=== PATIENT | male | born 2000 | race Caucasian/White ===

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

== ENCOUNTER 2022-03-10 02:22 | Emergency (ER) | payer OTHER ==
--- OUTSIDE RECORDS SUMMARY | 2022-03-10 02:26 | XMS REPORT | Continuity of Care Document ---
:2000 Author Organization [facility] t Address [address] [place] [address] Dr. Castro [address] [place] [address] Care Team Providers Name Role Phone Royce DUBON MBA, Daniel Robert Primary Care Physician [phone] MARIA INES SALDANA Attending Clinician Unavailable ZACKERY BLOUNT Attending Clinician Unavailable KAYLEEN MACHADO Attending Clinician Unavailable Kayleen Machado MD Attending Clinician Doctor Unassigned, [place] Attending Clinician Unavailable Darell Puri MD Attending Clinician VERITO Balbuena Eloise Attending Clinician Ashvin Cobian MD Attending Clinician ANGUS DALTON Attending Clinician Unavailable ANGELLA RAO Attending Clinician Unavailable Angus Amos Attending Clinician Provider[facility]ig[facility] Attending Clinician Unavailable IVAN MAYORGA Attending Clinician Unavailable Lab, Adc Fam Pob I Attending Clinician Unavailable LJ BRISENO Attending Clinician Unavailable ASHVIN COBIAN Attending Clinician Unavailable QI LYNCH Attending Clinician Unavailable ISMA AMBROSIO Attending Clinician Unavailable ISMA AMBROSIO Attending Clinician Unavailable Payers Payer Name Policy Type Policy Number Effective Date Expiration Date S mikey AETNA CHOICE POS [id number] 2019 00:00:00 II OPEN ACCESS [id number] 2019 00:00:00 HMO/POS/EPO/PPO - AETNA AETNA HMO POS [id number] 2019 00:00:00 QPOS Problems Condition Condition Condition Status Onset Resolution Last Treating Co mments Source Name Details Category Date Date Treatment Clinician Date Routine Routine Disease Active Last [facility] adult adult 2-25 [facility] 00:00: t & Plan: of maintenanc maintenanc 00 Formattin Medicin e e g of this e note might be different from the original. Last Annual Physical: - Healthy Lifestyle : Dietary: no specificd iet Exercise: walking at work - Colon Cancer Screening : FHx: negative- Colonosco py at 45 - Prostate Cancer Screening : FHx: positive, GF- PSA discussio n at 40-50 - Skin Cancer Preventio n: Uses Suncreen: yes, he will self monitor - Osteoporo sis Screen (>75): Bone Density at 75 - Vaccinati ons: - Flu: received 04/2021 - Pneumovax : at 65 - Prevnar: at 65 - Tetanus: received around 2018 - Zoster: at 50-60 - COVID-19: received Pfizer 06/2020, 07/2020 - AAA Screen: reports that he has never smoked. - HIV Status Testing (<65): declined - Hep C Testing (born 1945-65): declined No known No known Disease Unive rs active active ity of problems problems [facility] Allergies, Adverse Reactions, Alerts Allergy Allergy Status Severity Reaction(s) Onset Inactive Treating Comm ents Source Name Type Date Date Clinician DIPHENHY DRUG Active Other-Cmnt Univ ers DRAMINE INGREDI 03-30 ity of HCL 00:00: [place] 00 [facility] Diphenhy Propensi Active Other - See Other U nivers dramine ty to comments 03-30 reaction( ity of Hcl adverse 00:00: s): Other [place] reaction 00 - See Medical s [facility] Branch Diphenhy Propensi Active Other [facility] dramine ty to 03-30 reaction( Colleg e Hcl adverse 00:00: s): Other of reaction 00 - See Medicin s to comments e drug NO KNOWN Allergy Active [facility] Social History Social Habit Start Date Stop Date Quantity Comments Source History SDOH [facility] Alcohol Comment Medical C enter History SDOH [facility] Alcohol Std Drinks Medica l Center History SDOH [facility] Alcohol Binge Medical Navin ter Tobacco use and 2021-03-18 2021-03-[address] [facility] exposure 00:00:00 00:00:00 Medical Center Alcohol intake 2021-03-18 2021-03-[address] [facility] 00:00:00 00:00:00 non-drinker Medical Cente r (finding) History SDOH 2021-03-18 2021-03-[address] [facility] Alcohol Frequency 00:00:00 00:00:00 [facility] Center Sex Assigned At [address] [facility] 00:00:00 00:00:00 Medical Center Smoking Status Start Date Stop Date Source Never smoked tobacco [facility] Tony ege of Medicine Unknown if ever smoked [facility] Co llege of Medicine Medications Ordered Filled Start Stop Current Ordering Indication Dosage Frequency Signature Comments Components Source Medication Medication Date Date Medication? Clinician (SIG) Name Name sertraline Yes [id number] 25mg Take 1 [facility] (ZOLOFT) 25 2-25 Tablet by Col lege MG tablet 00:00: mouth of 00 daily. Medicin e hydrOXYzine 2019-03 Yes 10mg Take 1 [facility] (ATARAX) 10 1-27 Tablet by Col lege MG tablet 00:00: mouth 3 of 00 times Medicin daily as e needed for Anxiety. hydrOXYzine 2019-03 Yes 10mg Take 1 [facility] (ATARAX) 10 1-27 Tablet by Col lege MG tablet 00:00: mouth 3 of 00 times Medicin daily as e needed for Anxiety. sertraline Yes 50mg Take 1 Tab [facility] (ZOLOFT) 50 1-29 by mouth Tony ege MG tablet 00:00: daily. of 00 Medicin e SERTraline Yes 50mg Take 50 mg U nivers 50 mg 1-29 by mouth. ity of tablet 00:00: [place] [address] [place] [address] Branch sertraline 2021- No 50mg Take 1 Tab [place] (ZOLOFT) 50 04-26- by mouth Col lege MG tablet 00:00: 00:00 daily. of 00 :00 Medicin e sertraline 2018-03- No Take 0.5 [facility] (ZOLOFT) 50 2-20 01-20 Tabs by Tony ege MG tablet 00:00: 05:59 mouth of 00 :00 daily for Medicin 14 days, e THEN 1 Tab daily for 16 days. hydrOXYzine 2018-03 Yes 10mg Take 1 Tab [facility] (ATARAX) 10 2-18 by mouth 3 Co llege MG tablet 00:00: times of 00 daily as Medicin needed for e Anxiety. sertraline 2018-03- No Take 1 Tab [place] (ZOLOFT) 25 2-18 12-20 by mouth Col lege MG tablet 00:00: 00:00 daily for of 00 :00 14 days, Medicin THEN 2 e Tabs daily for 16 days. Immunizations Ordered Filled Immunization Date Status Comments [facility] e Immunization Name Name Influenza Quad-PF 2021-05-23 Completed [facility] 00:00:00 Medicine SARS-COV-2 COVID-19 2020-07-27 Completed Unive rsity of PFIZER VACCINE 00:00:00 [facility] SARS-COV-2 COVID-19 2020-07-06 Completed Unive rsity of PFIZER VACCINE 00:00:00 [facility] Influenza Virus 2018-01-31 Completed Universit y of Vaccine Quad IM 3+ 00:00:00 [facility] Influenza 2018-01-31 Completed [facility] (Preservative Free) 00:00:00 Medic ine Vital Signs Vital Name Observation Time Observation Value Comments Source Systolic blood 2021-05-23 14:29:00 120 mm[Hg] [facility] pressure Medicine Diastolic blood 2021-05-23 14:29:00 60 mm[Hg] [facility] Medicine Heart rate 2021-05-23 14:29:00 83 /min [facility] Body temperature 2021-05-23 14:29:00 36.39 [facility] Respiratory rate 2021-05-23 14:29:00 16 /min [facility] Body height 2021-05-23 14:29:00 177.8 cm [facility] Body weight 2021-05-23 14:29:00 70.035 kg [facility] BMI 2021-05-23 14:29:00 22.15 kg/m2 [facility] Oxygen saturation in 2021-05-23 14:29:00 98 /min [facility] Arterial blood by [facility] Pulse oximetry WEIGHT 2021-03-18 11:56:00 70.1 kg WEIGHT 2021-03-18 11:56:00 70.1 kg Systolic blood 2020-08-20 14:37:00 121 mm[Hg] [facility] Diastolic blood 2020-08-20 14:37:00 59 mm[Hg] [facility] Heart rate 2020-08-20 14:37:00 58 /min [facility] Body temperature 2020-08-20 14:37:00 36.83 [facility] Respiratory rate 2020-08-20 14:37:00 16 /min [facility] Body height 2020-08-20 14:37:00 177.8 cm [facility] Body weight 2020-08-20 14:37:00 66.225 kg [facility] BMI 2020-08-20 14:37:00 20.95 kg/m2 [facility] Systolic blood 2021-03-18 12:25:00 125 mm[Hg] [facility] Diastolic blood 2021-03-18 12:25:00 62 mm[Hg] [facility] Heart rate 2021-03-18 12:25:00 92 /min [facility] Respiratory rate 2021-03-18 12:25:00 18 /min [facility] Oxygen saturation in 2021-03-18 12:25:00 100 /min [facility] Arterial blood by Medical Ce nter Pulse oximetry Body temperature 2021-03-18 11:56:00 37.83 [facility] Body weight 2021-03-18 11:56:00 70.1 kg [facility] Respiratory rate 2019-03-15 20:02:00 16 /min [facility] Body height 2019-03-15 20:02:00 175.3 cm [facility] Body weight 2019-03-15 20:02:00 65.998 kg [facility] BMI 2019-03-15 20:02:00 21.49 kg/m2 [facility] Systolic blood 2019-03-15 20:02:00 113 mm[Hg] [facility] pressure Medicine Diastolic blood 2019-03-15 20:02:00 46 mm[Hg] [facility] Medicine Heart rate 2019-03-15 20:02:00 67 /min [facility] Procedures Procedure Date / Time Performing Clinician Source Performed AUTHORIZATION FOR 2020-11-10 05:01:00 Doctor Unassigned, No Univ [facility] RELEASE OF PHI Name Medical Branch Plan of Care Planned Activity Planned Date Details Comments Source Future Scheduled 2022-03-[address] [facility] Test 00:00:00 Counseling and Medical Cente r Screening (12+) [code = Tobacco Cessation Counseling and Screening (12+)] Future Scheduled 2021-11-27 INFLUENZA VACCINE (#1) [facility] 00:00:00 [code = INFLUENZA Medical Ce nter VACCINE (#1)] Future Scheduled 2021-05-23 HPV VACCINE (1 - Male [facility] Test 09:07:52 2-dose series) [code = of [place] HPV VACCINE (1 - Male 2-dose series)] Future Scheduled 2021-05-23 TETANUS SHOT (ADULT) [facility] Test 09:07:52 [code = TETANUS SHOT of Medi cine (ADULT)] Future Scheduled 2021-05-23 Hepatitis C screening [facility] Test 09:07:52 (procedure) [code = of Medic ine [id number]] Future Scheduled 2021-05-23 Human immunodeficiency [facility] Test 09:07:52 virus screening of Medicine (procedure) [code = 847306962] Future Scheduled 2021-05-23 COVID-19 Vaccine (3 - Ba [facility] Test 09:07:52 Booster for Pfizer of Medici ne series) [code = COVID-19 Vaccine (3 - Booster for Pfizer series)] Future Scheduled 2021-05-23 CBC W/AUTO DIFF WITH Ordered: [facility] Test 08:55:41 PLATELETS [code = 05/23/2021 of Mary rincon 54602-1] Future Scheduled 2021-05-23 COMPREHENSIVE METABOLIC Ordered: [facility] Test 08:55:41 PANEL [code = 27583-5] 05/23/2021 of dicine Future Scheduled 2021-03-[address] [facility] Test 00:00:00 (12+) [code = Medical Center DEPRESSION SCREENING (12+)] Future Scheduled 2020-12-27 COVID-19 VACCINE (3 - [facility] Test 00:00:00 Booster for Pfizer Medical C enter series) [code = COVID-19 VACCINE (3 - Booster for Pfizer series)] Future Scheduled 2020-08-20 AILIN,POST-VOID Ordered: [facility] Co llege Test 09:46:18 RES,US,NON-IMG [code = 08/20/2020 of dicine 27725] Future Scheduled 2020-08-20 HPV VACCINE (1 - Male [facility] Test 09:39:02 2-dose series) [code = of [place] HPV VACCINE (1 - Male 2-dose series)] Future Scheduled 2020-08-20 TETANUS SHOT (ADULT) [facility] Test 09:39:02 [code = TETANUS SHOT of Medi cine (ADULT)] Future Scheduled 2020-08-20 Hepatitis C screening [facility] Test 09:39:02 (procedure) [code = of Medic griselda [id number]] Future Scheduled 2020-08-20 Human immunodeficiency B [facility] Test 09:39:02 virus screening of Medicine (procedure) [code = 373086474] Future Scheduled 2020-08-20 FLU VACCINE > 6 MONTHS [facility] Test 09:39:02 [code = FLU VACCINE > 6 of M edicine MONTHS] Future Scheduled 2019-06-22 DTAP/TDAP/TD VACCINES [facility] Test 00:00:00 (1 - Tdap) [code = Medical C enter DTAP/TDAP/TD VACCINES (1 - Tdap)] Future Scheduled 2018 HEPATITIS C SCREENING [facility] Test 00:00:00 [code = HEPATITIS C Medical Center SCREENING] Future Scheduled TETANUS SHOT (ADULT) [facility] Test [code = TETANUS SHOT of Medi cine (ADULT)] Future Scheduled FLU VACCINE > 6 MONTHS B [facility] Test [code = FLU VACCINE > 6 of M edicine MONTHS] Encounters Start End Encounter Admission Attending Care Care Encounter Source Date/Time Date/Time Type Type Clinicians Facility Department ID 2021-01-24 Emergency [facility] [id number] Univers 05:24:22 ity of [facility] 2021-07-16 2021-07-16 Outpatient DENA SALDANA [facility] [id number] [facility] 16:16:55 16:20:24 MARIA INES Reyes e of Medicin e 2021-05-23 2021-05-23 Office DENA BLOUNT [id number] [facility] 08:26:38 11:32:42 Visit ZACKERY AMBULATOR [id number] College Y [id number] of [id number] [facility] simon 300 e 2021-03-18 2021-03-18 Emergency ER KAYLEEN MACHADO [facility] Emergency [id number] [facility] 12:26:00 12:35:00 2021-03-18 2021-03-18 Emergency Kayleen Machado [facility] [id number] [facility] St 12:26:00 12:35:00 [facility] 2021-03-18 2021-03-18 Travel [facility] [id number] [facility] St 00:00:00 00:00:00 [facility] 2020-11-10 2020-11-10 Orders Doctor MAYRA [id number] [facility] 00:00:00 00:00:00 Only Unassigned, JUSTINE [id number] ity of [place] [facility] [id number] Arc[place] as [id number] [place] [address] Branch 2020-08-20 2020-08-20 Office DENA Puri [id number] [facility] 09:15:58 09:35:58 Visit Darell AMBULATOR [id number] College P Y 0.2.7.2.686 of [id number] Medi simon 300 e 2020-07-27 2020-07-27 Outpatient [facility] [id number] Univers 09:40:00 09:40:00 [facility] 2020-07-24 2020-07-24 Telephone Rossana [facility] [id number] 00:00:00 00:00:00 [facility] [id number] Cancer 4.2.7.2.686 [facility] [id number] MDA [id number] 2020-07-12 2020-07-12 Telephone ROLAND Cobian 1.2.840.114 [id number] 00:00:00 00:00:00 [facility] [id number] CLINICS [id number] [id number] 2020-07-09 2020-07-09 Outpatient [facility] [id number] Univers 08:00:00 08:00:00 ANGUS itmyriam [facility] 2020-07-06 2020-07-06 Outpatient [facility] [id number] Univers 09:25:00 09:25:00 ANGELLA [facility] 2020-07-05 2020-07-05 [facility] [id number] 08:29:58 23:59:00 Encounter Angus Cantu [id number] [place] 4.2.7.2.686 [place] [id number] 2020-07-05 2020-07-05 Outpatient [facility] [id number] Univers 00:00:00 00:00:00 ANGUS vasques [facility] 2020-07-05 2020-07-05 MAYRA Hairston 1.2.840.114 [id number] 00:00:00 00:00:00 Management Angus FLETCHER [id number] [facility] 4.2.7.2.686 [id number] 2020-07-02 2020-07-02 MAYRA Hairston 1.2.840.114 [id number] 00:00:00 00:00:00 Management Angus FLETCHER [id number] HOSPITAL 4.2.7.2.686 [id number] 2020-07-01 2020-07-01 Telephone MangoROLAND 1.2.840.114 [id number] 00:00:00 00:00:00 Ashvin C Y HEALTH [id number] CLINICS 4.2.7.2.686 [id number] 2020-06-25 2020-06-25 Urgent Provider, [facility] [id number] 11:18:43 11:38:43 Care Ang [facility] [id number] Care [place] 4.2.7.2.686 Professio [id number] nal 044 Office [address] One 2020-06-25 2020-06-25 Outpatient R MUKESH [facility] [id number] [facility] 11:20:00 11:20:00 IVAN vasques [facility] 2020-06-24 2020-06-24 Laboratory Lab, [facility] 1.2.840.114 [id number] 17:24:09 17:44:09 Only Fam Pob I Health [id number] [place] 4.2.7.2.686 Professio [id number] nal 044 Office [address] [facility] 2020-06-24 2020-06-24 Outpatient [facility] [id number] Univers 17:20:00 17:20:00 LJ calderón [facility] 2020-03-18 2020-03-18 Orders Doctor NUNEZ 1.2.840.114 [id number] 00:00:00 00:00:00 Only Unassigned, JUSTINE [id number] [place] [facility] 4.2.7.2.686 [id number] 2019-12-20 2019-12-20 Orders Doctor NUNEZ 1.2.840.114 [id number] 00:00:00 00:00:00 Only Unassigned, JUSTINE [id number] [place] [facility] 4.2.7.2.686 [id number] 2019-10-23 2019-10-23 Outpatient R [facility] [id number] Univers 09:00:00 09:00:00 [facility] 2019-10-23 2019-10-23 Office Mango [facility] [id number] 08:44:55 08:59:55 Visit Ashvin [facility] [id number] Cancer 4.2.7.2.686 Center - [id number] [facility] 185 2019-10-11 2019-10-11 Outpatient R SYED [facility] [id number] Univers 11:00:00 11:00:00 QI [facility] 2019-09-27 2019-09-27 Outpatient R WILL AMBROSIOMSSulaiman [facility] [id number] Univers 15:30:00 15:30:00 ISMA AMBROSIO [facility] 2019-06-28 2019-06-28 Outpatient R WILL AMBROSIOMSSulaiman [facility] [id number] Univers 11:00:00 11:00:00 ISMA AMBROSIO [facility] 2019-05-27 2019-05-27 Outpatient R [facility] [id number] Univers 20:00:00 20:00:00 DAILY [facility] Results This patient has no known results.
[2022-03-10 03:45] LABS: SARS-COV-2 RT PCR NEGATIVE (NEGATIVE)
--- NOTE | 2022-03-10 04:08 | ER ---
Nurse's Notes [facility] Name: Salvatore Ramey Jr Age: 21 yrs Sex: Male : 2000 Arrival Date: 03/10/2022 Time: 02:26 Bed IW1 Private MD: Diagnosis: Acute pharyngitis, unspecified Presentation: 03/10 02:36 Chief complaint: Patient states: "My throat started hurting yesterday morning.". Ebola vc1 Screen: No symptoms or risks identified at this time. Risk Assessment: Do you want to hurt yourself or someone else? Patient reports no desire to harm self or others. Onset of symptoms was March 09, 2022. 02:36 Method Of Arrival: Ambulatory vc1 02:36 Acuity: VIRAJ 4 vc1 02:39 Coronavirus screen: Vaccine status: Patient reports receiving the 2nd dose of the covid vc1 vaccine. Initial Sepsis Screen: Does the patient meet any 2 criteria? No. Patient's initial sepsis screen is negative. Does the patient have a suspected source of infection? No. Patient's initial sepsis screen is negative. Triage Assessment: 02:39 General: Appears in no apparent distress. uncomfortable, ill, Behavior is calm, vc1 cooperative, appropriate for age. EENT: Reports pain when swallowing Pain is 8 out of 10 on a pain scale. Historical: - Allergies: 02:38 Benadryl; vc1 - Home Meds: 02:38 None [Active]; vc1 - PMHx: 02:38 Sleep Apnea; vc1 - PSHx: 02:38 None; vc1 - Immunization history:: Client reports receiving the 2nd dose of the Covid vaccine, Pfizer. - Social history:: Smoking status: Patient denies any tobacco usage or history of. - Family history:: not pertinent. - Hospitalizations: : No recent hospitalization is reported. Screenin:37 Abuse screen: Denies threats or abuse. Nutritional screening: No deficits noted. vc1 Tuberculosis screening: No symptoms or risk factors identified. Fall Risk No fall in past 12 months (0 pts). Assessment: 02:37 General: Appears in no apparent distress. uncomfortable, ill, Behavior is cooperative, vc1 appropriate for age. Pain: Complains of pain in Throat Pain does not radiate. Neuro: No deficits noted. Cardiovascular: No deficits noted. Respiratory: Airway is patent Respiratory effort is even, unlabored, Breath sounds are clear. GI: No deficits noted. No signs and/or symptoms were reported involving the gastrointestinal system. : No deficits noted. No signs and/or symptoms were reported regarding the genitourinary system. EENT: Throat is pink Reports pain when swallowing. Vital Signs: 02:39 BP 99 / 77; Pulse 63; Resp 15; Temp 97.7; Pulse Ox 99% ; Weight 68.04 kg; Height 5 ft. vc1 10 in. (177.80 cm); 02:39 Body Mass Index 21.52 (68.04 kg, 177.80 cm) vc1 ED Course: 02:26 Patient arrived in ED. [id number] 02:27 Jorge Jimenez MD is Attending Physician. rn 02:37 Triage completed. vc1 02:39 Arm band placed on right wrist. vc1 04:20 No provider procedures requiring assistance completed. Patient did not have IV access vc1 during this emergency room visit. Administered Medications: No medications were administered Medication: 02:42 VIS not applicable for this client. vc1 Outcome: 04:08 Discharge ordered by . rn 04:21 Discharged to home ambulatory. vc1 04:21 Condition: good 04:21 Discharge instructions given to patient, Instructed on discharge instructions, follow up and referral plans. medication usage, Demonstrated understanding of instructions, follow-up care, medications, Prescriptions given X 1. 04:21 Patient left the ED. vc1 Signatures: Jorge Jimenez MD MD rn Jeffries, Jennifer [email or web address] Nancie Jameson RN RN vc1
--- NOTE | 2022-03-10 04:08 | EDPHYS ---
Physician Documentation [facility] Name: Salvatore Ramey Jr Age: 21 yrs Sex: Male : 2000 Arrival Date: 03/10/2022 Time: : Bed IW1 Private MD: ED Physician Jorge Jimenez HPI: 03/10 02:51 This 21 yrs old Male presents to ER via Ambulatory with complaints of Nasal Drainage, rn Sore Throat. 02:51 The patient or guardian reports sore throat. Onset: The symptoms/episode began/occurred rn yesterday. Severity of symptoms: At their worst the symptoms were mild, in the emergency department the symptoms are unchanged. Modifying factors: The symptoms are alleviated by nothing, the symptoms are aggravated by nothing. Associated signs and symptoms: Pertinent positives: rhinorrhea, sore throat, Pertinent negatives: chest pain, diarrhea, ear ache, fever, vomiting. The patient has not experienced similar symptoms in the past. The patient has not recently seen a physician. Historical: - Allergies: 02:38 Benadryl; vc1 - Home Meds: 02:38 None [Active]; vc1 - PMHx: 02:38 Sleep Apnea; vc1 - PSHx: 02:38 None; vc1 - Immunization history:: Client reports receiving the 2nd dose of the Covid vaccine, [place]. - Social history:: Smoking status: Patient denies any tobacco usage or history of. - Family history:: not pertinent. - Hospitalizations: : No recent hospitalization is reported. ROS: 02:51 Constitutional: Negative for fever, chills, and weight loss, Eyes: Negative for injury, rn pain, redness, and discharge, ENT: + runny nose and sore throat Neck: Negative for injury, pain, and swelling, Cardiovascular: Negative for chest pain, palpitations, and edema, Respiratory: Negative for shortness of breath, cough, wheezing, and pleuritic chest pain, Abdomen/GI: Negative for abdominal pain, nausea, vomiting, diarrhea, and constipation, Back: Negative for injury and pain, MS/Extremity: Negative for injury and deformity, Skin: Negative for injury, rash, and discoloration, Neuro: Negative for headache, weakness, numbness, tingling, and seizure. Exam: 02:51 Constitutional: This is a well developed, well nourished patient who is awake, alert, rn and in no acute distress. Head/Face: Normocephalic, atraumatic. Eyes: Periorbital areas with no swelling, redness, or edema. ENT: + pharyngeal erythema, no exudate, uvula midline, no MARITIME ENGINEER, MMM, no stridor Neck: Trachea midline, no thyromegaly or masses palpated, and no cervical lymphadenopathy. Supple, full range of motion without nuchal rigidity, or vertebral point tenderness. No Meningismus. Cardiovascular: Regular rate and rhythm. No pulse deficits. Respiratory: No increased work of breathing, no retractions or nasal flaring. Abdomen/GI: Soft, non-tender, with normal bowel sounds. No distension or tympany. No guarding or rebound. No evidence of tenderness throughout. Skin: Warm, dry MS/ Extremity: Pulses equal, no cyanosis. Neuro: Awake and alert, GCS 15 Vital Signs: 02:39 BP 99 / 77; Pulse 63; Resp 15; Temp 97.7; Pulse Ox 99% ; Weight 68.04 kg; Height 5 ft. vc1 10 in. (177.80 cm); 02:39 Body Mass Index 21.52 (68.04 kg, 177.80 cm) vc1 MDM: 02:27 Patient medically screened. rn 04:07 Differential Diagnosis: Bronchitis Influenza Upper Respiratory Infection Sinusitis rn Viral Syndrome. Data reviewed: vital signs, nurses notes, lab test result(s), and as a result, I will discharge patient. Counseling: I had a detailed discussion with the patient and/or guardian regarding: the historical points, exam findings, and any diagnostic results supporting the discharge/admit diagnosis, lab results, the need for outpatient follow up, to return to the emergency department if symptoms worsen or persist or if there are any questions or concerns that arise at home. Special discussion: I discussed with the patient/guardian in detail that at this point there is no indication for admission to the hospital. It is understood, however, that if the symptoms persist or worsen the patient needs to return immediately for re-evaluation. 03/10 02:40 Order name: Strep; Complete Time: 04:07 rn 03/10 02:40 Order name: COVID-19/FLU A+B; Complete Time: 03:46 rn 03/10 04:09 Order name: Throat Culture EDMS Administered Medications: No medications were administered Disposition Summary: 03/10/22 04:08 Discharge Ordered Location: Home rn Problem: new rn Symptoms: are unchanged rn Condition: Stable rn Diagnosis - Acute pharyngitis, unspecified rn Followup: rn - With: Private Physician - When: As needed - Reason: Recheck today's complaints, Re-evaluation by your physician Discharge Instructions: - Discharge Summary Sheet rn - Pharyngitis rn - Sore Throat rn Forms: - Medication Reconciliation Form rn - Thank You Letter rn - Antibiotic rn nursery - Prescription Opioid Use rn Prescriptions: - Augmentin 875-125 mg Oral Tablet - take 1 tablet by ORAL route every 12 hours for 10 days; 20 tablet; Refills: 0, rn Product Selection Permitted Signatures: Dispatcher [employer] EDJorge Borrego MD MD rn Calcote, Vanessa, RN RN vc1
[2022-03-10 04:25] VITALS: BP 99/77; TEMP 97.7; O2SAT 99
== END 2022-03-10 04:21 | disposition home or self-care (01) ==
LOC: ER 02:22
DX: J02.9 Acute pharyngitis, unspecified (principal); Z20.822 Contact with and (suspected) exposure to COVID-19; Z91.048 Other nonmedicinal substance allergy status
CPT/HCPCS: 87070; 87081; 0240U; 99282

== ENCOUNTER → 2023-03-27 | Emergency (ER) | payer OTHER ==
--- NOTE | 2023-03-27 14:26 | RAD REPORT ---
EXAM DESCRIPTION: RAD - Hand Right 3 View - 03/27/2023 1:32 pm CLINICAL HISTORY: Right hand pain status post injury FINDINGS: There may be an old fifth metacarpal fracture. No acute fracture or dislocation noted
--- NOTE | 2023-03-27 14:36 | ER ---
Nurse's Notes [facility] Name: Salvatore Ramey Jr Age: 22 yrs Sex: Male : 2000 Arrival Date: 03/27/2023 Time: 12:18 Bed IW1 Private MD: Diagnosis: Contusion of right hand Presentation: 03/27 12:29 Chief complaint: Right hand pain 6/10 after punching metal door 3 days ago. Coronavirus hb screen: At this time, the client does not indicate any symptoms associated with coronavirus-19. Ebola Screen: No symptoms or risks identified at this time. Initial Sepsis Screen: Does the patient meet any 2 criteria? No. Patient's initial sepsis screen is negative. Does the patient have a suspected source of infection? No. Patient's initial sepsis screen is negative. Risk Assessment: Do you want to hurt yourself or someone else? Patient reports no desire to harm self or others. Onset of symptoms was March 24, 2023. 12:29 Method Of Arrival: Ambulatory hb 12:29 Acuity: VIRAJ 4 hb Triage Assessment: 14:51 General: Appears in no apparent distress. Behavior is calm, cooperative, appropriate bp for age. Pain: Complains of pain in MCP of right ring finger and MCP of right middle finger. Musculoskeletal: No deficits noted. Injury Description: Bruise sustained to MCP of right ring finger and MCP of right middle finger. Historical: - Allergies: 12:30 Benadryl; hb - Home Meds: 12:30 None [Active]; hb - PMHx: 12:30 Celiac Artery; Sleep Apnea; hb - PSHx: 12:30 None; hb - Immunization history:: Adult Immunizations up to date. - Social history:: Smoking status: Patient denies any tobacco usage or history of. Screenin:52 [facility] ED Fall Risk Assessment (Adult) History of falling in the last 3 months, bp including since admission No falls in past 3 months (0 pts). Abuse screen: Denies threats or abuse. Denies injuries from another. Nutritional screening: No deficits noted. Tuberculosis screening: No symptoms or risk factors identified. Vital Signs: 12:29 BP 122 / 44; Pulse 73; Resp 16; Temp 99; Pulse Ox 100% on R/A; Weight 70.31 kg; Height hb 5 ft. 10 in. ; Pain 6/10; 12:29 Body Mass Index 22.24 (70.31 kg, 177.8 cm) hb 12:29 Pain Scale: Adult hb ED Course: 12:19 Patient arrived in ED. rg4 12:20 [facility] Chow [facility] jh7 12:20 Jorge Jimenez MD is Attending Physician. jh7 12:30 Triage completed. hb 12:30 Arm band placed on. hb 13:34 XRAY Hand RIGHT 3 View In Process Unspecified. EDMS 14:51 Talat Borja, RN is Primary Nurse. bp 14:52 Patient has correct armband on for positive identification. bp 14:52 No provider procedures requiring assistance completed. Patient did not have IV access bp during this emergency room visit. Administered Medications: No medications were administered Medication: 14:52 VIS not applicable for this client. bp Outcome: 14:36 Discharge ordered by . jh7 14:52 Discharged to home ambulatory, bp 14:52 Condition: stable 14:52 Discharge instructions given to patient, Instructed on discharge instructions, follow up and referral plans. Demonstrated understanding of instructions, follow-up care, 14:52 Patient left the ED. bp Signatures: Dispatcher [employer] EDMS Lissa Lee RN RN hb Garcia, Rubi rg4 Talat Borja, RN RN Savana Chow FNP FNP [facility]
--- NOTE | 2023-03-27 14:36 | EDPHYS ---
Physician Documentation [facility] Name: Salvatore Ramey Jr Age: 22 yrs Sex: Male : 2000 Arrival Date: 03/27/2023 Time: 12:18 Bed IW1 Private MD: ED Physician Jorge Jimenez HPI: 03/27 12:29 This 22 yrs old Male presents to ER via Ambulatory with complaints of Hand Injury. jh7 12:29 The patient or guardian reports a contusion, injury, pain. The complaints affect the jh7 MCP of right middle finger and MCP of right ring finger. Context: The problem was sustained at home, resulted from using own fist to strike, a door. Onset: The symptoms/episode began/occurred 3 day(s) ago. Associated signs and symptoms: Pertinent negatives: cyanosis distally, decreased sensation distally, fever, numbness distally, tingling distally. Historical: - Allergies: 12:30 Benadryl; hb - Home Meds: 12:30 None [Active]; hb - PMHx: 12:30 Celiac Artery; Sleep Apnea; hb - PSHx: 12:30 None; hb - Immunization history:: Adult Immunizations up to date. - Social history:: Smoking status: Patient denies any tobacco usage or history of. ROS: 12:29 Constitutional: Negative for fever, chills, and weight loss, Eyes: Negative for injury, jh7 pain, redness, and discharge, Neck: Negative for injury, pain, and swelling, Cardiovascular: Negative for chest pain, palpitations, and edema, Respiratory: Negative for shortness of breath, cough, wheezing, and pleuritic chest pain, Abdomen/GI: Negative for abdominal pain, nausea, vomiting, diarrhea, and constipation, Back: Negative for injury and pain, MS/Extremity: Negative for injury and deformity, Skin: Negative for injury, rash, and discoloration, Neuro: Negative for headache, weakness, numbness, tingling, and seizure, 12:29 MS/extremity: Positive for pain, tenderness, of the MCP of right ring finger and MCP of right middle finger, 12:29 All other systems are negative, Exam: 12:29 Constitutional: This is a well developed, well nourished patient who is awake, alert, jh7 and in no acute distress. Head/Face: Normocephalic, atraumatic. Neck: Trachea midline, no thyromegaly or masses palpated, and no cervical lymphadenopathy. Supple, full range of motion without nuchal rigidity, or vertebral point tenderness. No Meningismus. Cardiovascular: Regular rate and rhythm with a normal S1 and S2. No gallops, murmurs, or rubs. Normal PMI, no JVD. No pulse deficits. Respiratory: Lungs have equal breath sounds bilaterally, clear to auscultation and percussion. No rales, rhonchi or wheezes noted. No increased work of breathing, no retractions or nasal flaring. Abdomen/GI: Soft, non-tender, with normal bowel sounds. No distension or tympany. No guarding or rebound. No evidence of tenderness throughout. Skin: Warm, dry with normal turgor. Normal color with no rashes, no lesions, and no evidence of cellulitis. Neuro: Awake and alert, GCS 15, oriented to person, place, time, and situation. Motor strength 5/5 in all extremities. Sensory grossly intact. Normal gait. 12:29 Musculoskeletal/extremity: Extremities: noted in the MCP of right ring finger and MCP of right middle finger: tenderness, ROM: intact in all extremities, Circulation is intact in all extremities. Perfusion: the extremity is normally perfused throughout, pink, warm, with brisk capillary refill, Sensation intact. Vital Signs: 12:29 BP 122 / 44; Pulse 73; Resp 16; Temp 99; Pulse Ox 100% on R/A; Weight 70.31 kg; Height hb 5 ft. 10 in. ; Pain 6/10; 12:29 Body Mass Index 22.24 (70.31 kg, 177.8 cm) hb 12:29 Pain Scale: Adult hb MDM: 12:20 Patient medically screened. [facility] 14:37 Differential diagnosis: dislocation, closed fracture, contusion. Data reviewed: vital [facility] signs, nurses notes, radiologic studies, plain films. Counseling: I had a detailed discussion with the patient and/or guardian regarding the historical points, exam findings, and any diagnostic results supporting the discharge/admit diagnosis, to return to the emergency department if symptoms worsen or persist or if there are any questions or concerns that arise at home. 03/27 12:33 Order name: XRAY Hand RIGHT 3 View; Complete Time: 14:35 jh7 Administered Medications: No medications were administered Disposition: 18:37 Co-signature as Attending Physician, Jorge Jimenez MD I reviewed the patient's care rn provided by the Advanced Practice Provider and agree with the diagnosis and treatment plan. Disposition Summary: 03/27/23 14:36 Discharge Ordered Notes: Location: Home [facility] Problem: new [facility] Symptoms: are unchanged jh7 Condition: Stable jh7 Diagnosis - Contusion of right hand [facility] Followup: [facility] - With: Private Physician - When: 2 - 3 days - Reason: Recheck today's complaints Discharge Instructions: - Discharge Summary Sheet [facility] - Hand Contusion [facility] Forms: - Medication Reconciliation Form [facility] - Thank You Letter [facility] - Patient Portal Instructions [facility] - Leadership Thank You Letter [facility] Signatures: Dispatcher [employer] EDJorge Borrego MD MD rn Baxter, Heather, RN RN hb Hadash, Jennifer, FNP MARKETING REPRESENTATIVE [facility]
[2023-03-27 15:58] VITALS: BP 122/44; TEMP 99; O2SAT 100
== END ==
LOC: ER 12:18
DX: S60.221A Contusion of right hand, initial encounter (principal); Z88.8 Allergy status to other drugs, medicaments and biological substances
CPT/HCPCS: 99282